=== PATIENT | female | born 1960 | race Caucasian/White ===

== ENCOUNTER 2021-12-10 00:52 | Day surgery (SDC) | payer OTHER, SELFPAY ==
[2021-11-12 11:33] VITALS: BMI 26.5
--- NOTE | 2021-12-10 07:30 | P.PNAN_ITS ---
Anes - Initial Pre Proc Eval Procedure: Operation Date: 12/10/21 11:15 Proposed Procedures p Screening Colonoscopy - Leo Kidd MD Date/Time: 12/10/21 07:30 Surgeon: Leo Kidd MD Pre Op Diagnosis: neoplasm screening Patient Data Age: 61 Gender: F Height: 1.71 m Weight: 78 kg Allergies Allergy/AdvReac Type Severity Reaction Status Date / Time No Known Allergies Allergy Verified 12/10/21 11:06 Home Medications Medication Instructions Recorded Confirmed Type multivitamin with minerals-folic 1 tablet PO DAILY 11/12/21 12/06/21 History acid 0.4 mg tablet Patient hx anesthesia problems: none Family hx anesthesia problems: none Results Review: All pre-operative results and documents have been reviewed as part of the pre- operative evaluation. FOR[facility]LY [facility], [facility] Past Medical History Medical History (Updated 12/10/21 @ 11:14 by Leo Kidd MD) History of squamous cell carcinoma Social History Social History Smoking status: Never smoker Alcohol intake: current Drinks per week: 14 Alcohol use details: RED WINE Substance use: never Substance use type: does not use Living arrangements: with family Spiritual care concerns: No Anes - Eval Final PreProcedure Day of Procedure 12/10/21 07:30 Patient weight: overweight Heart: regular rate and rhythm Lungs: clear to auscultation Airway: Mallampati scale class II Neurological: alert and oriented Last oral intake: >/= 8 hours ASA classification: III Emergent: no Anesthetic plan: proceed Anesthesia type and monitoring: general ETT and standard monitoring Results Review: All pre-operative results and documents have been reviewed as part of the pre- operative evaluation. Informed Consent: The patient's anesthetic plan and its attendant risks and benefits were discus sed with the patient/family/POA. Questions were solicited and answers provided to the satisfaction of the patient/family/POA.
[2021-12-10 11:07] VITALS: BP 114/78; PULSE 63; RESP 20; TEMP 36; O2SAT 100
--- NOTE | 2021-12-10 11:14 | PM.HPGS ---
History of Present Illness History of Present Illness Consent: Risks, benefits, and alternatives have been discussed and questions answered. Patient agrees to proceed with procedure. Chief complaint: neoplasm screening Narrative: Arminda Hunt is a 61 year old female referred for colon cancer screening. Her father had colon cancer. Her last colonoscopy was 10 years ago Review of Systems Review of Systems: All systems reviewed & are unremarkable except as noted in HPI and below PMFSH Past Medical History Medical History History of squamous cell carcinoma Social History Social History Smoking status: Never smoker Alcohol intake: current Drinks per week: 14 Alcohol use details: RED WINE Substance use: never Substance use type: does not use Living arrangements: with family Spiritual care concerns: No Meds Home Medications and Allergies Home Medications Medication Instructions Recorded Confirmed Type multivitamin with minerals-folic 1 tablet PO DAILY 11/12/21 12/06/21 History acid 0.4 mg tablet Allergies Allergy/AdvReac Type Severity Reaction Status Date / Time No Known Allergies Allergy Verified 12/10/21 11:06 Vital Signs Vital Signs - 24 hr 12/10/21 11:07 Temperature 36.0 C L Pulse Rate 63 Respiratory Rate 20 Blood Pressure 114/78 Pulse Oximetry 100 Oxygen Delivery Room Air Exam Resp: Auscultation: clear to auscultation bilaterally Cardio: Rate: regular rate Rhythm: regular rhythm GI: GI Palp: Yes Soft to palpation and No Tenderness to palpation present (GI) Assessment and Plan Assessment and plan (1) Colon cancer screening: Code(s): Z12.11 - Encounter for screening for malignant neoplasm of colon Status: Acute Assessment and Plan: Colonoscopy with possible biopsy or polypectomy or cautery or injection of substances.
[2021-12-10] MEDS: LACTATED RINGERS 1,000 ML 150 ML IV CONT (11:21)
[2021-12-10 11:59] VITALS: BP 100/69; PULSE 69; RESP 20; O2SAT 96
[2021-12-10 12:09] VITALS: BP 100/64; PULSE 66; RESP 13; O2SAT 100
[2021-12-10 12:19] VITALS: BP 107/68; PULSE 59; RESP 17; O2SAT 99
== END 2021-12-10 12:25 | disposition home or self-care (01) ==
PROVIDERS: PCP Physician Assistant; Visit Provider Internal Medicine Gastroenterology
PROC: 0DJD8ZZ Inspection of Lower Intestinal Tract, Via Natural or Artificial Opening Endoscopic (ICD-10-PCS; CPT 45378; principal; 2021-12-10 11:15)
DX: Z12.11 Encounter for screening for malignant neoplasm of colon (principal); Z80.0 Family history of malignant neoplasm of digestive organs; Z85.828 Personal history of other malignant neoplasm of skin
CPT/HCPCS: 45378; J2704; J7120

== ENCOUNTER → 2022-01-02 11:12 | Outpatient (CLI) | payer OTHER, SELFPAY ==
--- NOTE | ~2022-01-02 | XR_ITS ---
XR hip RT min 3V w AP pelvis DATE: 01/02/2022 11:43 INDICATION: Right lateral hip pain for 9 months TECHNIQUE: AP pelvis. AP, lateral and crosstable lateral views of right hip COMPARISON: None FINDINGS: Degenerative disease noted at L3-4, L4-5 and L5-S1. The pubic symphysis and sacral iliac joints are normally aligned. No pelvic fracture or bone destruction is detected. Hip joint spaces are symmetric and relatively preserved. No fracture or dislocation, avascular necros is or bone destruction of the right hip is detected. IMPRESSION: Degenerative disc disease at L3-4 through L5-S1 No fracture or dislocation, avascular necrosis or bone destruction or significant degenerative change of the right hip is noted Reviewed, dictated and finalized at location A. IMPRESSION: Degenerative disc disease at L3-4 through L5-S1 No fracture or dislocation, avascular necrosis or bone destruction or significa nt degenerative change of the right hip is noted
== END ==
PROVIDERS: PCP Physician Assistant; Visit Provider Physician Assistant
DX: M47.817 Spondylosis without myelopathy or radiculopathy, lumbosacral region (principal)
CPT/HCPCS: 73502